=== PATIENT | male | born 1945 | race Caucasian/White ===

== ENCOUNTER 2017-10-01 10:12 | Inpatient (IN) | payer MEDICARE ==
[2017-09-30 11:47] VITALS: BMI 29.1
[2017-10-01] MEDS ORDERED: CEFAZOLIN/Water 2 GM/20 ML SYRINGE ONE ×2 (13:58→14:29)
[2017-10-01] MEDS ORDERED: Lidocaine 1% PF 5 ML VIAL ONE (14:13)
[2017-10-01] MEDS ORDERED: Propofol 200 MG/20 ML VIAL ONE (14:13)
[2017-10-01] MEDS ORDERED: Fentanyl 100 MCG/2 ML VIAL ONE ×2 (14:58→15:19)
[2017-10-01] MEDS ORDERED: Ondansetron HCl/PF 4 MG/2 ML Vial IVP PRN ×2 (16:13→16:36)
[2017-10-01] MEDS ORDERED: Cepastat Lozenges 1 LOZ PO PRN (16:13)
[2017-10-01] MEDS ORDERED: Fentanyl 100 MCG/2 ML VIAL SLOW IVP PRN (16:13)
[2017-10-01] MEDS ORDERED: traMADol HCl 50 MG TAB PO PRN ×2 (16:13)
[2017-10-01] MEDS ORDERED: Ondansetron ODT 4 MG TAB PO PRN (16:13)
[2017-10-01] MEDS ORDERED: Milk Of Magnesia 30 ML UDCUP PO PRN (16:13)
[2017-10-01] MEDS ORDERED: Fleet Enema 133 ML BOT PR PRN (16:13)
[2017-10-01] MEDS ORDERED: Bisacodyl 10 MG SUPP PR PRN (16:13)
[2017-10-01] MEDS ORDERED: Acetaminophen 325 MG TAB PO PRN (16:13)
[2017-10-01] MEDS ORDERED: Sodium Chloride 0.9% 1,000 ML IV SCH (16:15)
[2017-10-01] MEDS ORDERED: HYDROcodone/Acetaminophen 10/325 mg Tablet PO PRN (16:21)
[2017-10-01] MEDS ORDERED: Zolpidem Tartrate 5 MG TAB PO PRN (16:21)
[2017-10-01] MEDS ORDERED: Bisacodyl 5 MG TAB PO PRN (16:21)
[2017-10-01] MEDS ORDERED: Fentanyl 250 MCG/5 ML VIAL ONE (16:26)
[2017-10-01] MEDS ORDERED: Ondansetron HCl/PF 4 MG/2 ML Vial ONE (16:28)
[2017-10-01] MEDS ORDERED: Promethazine HCl 25 MG/ML VIAL ONE (16:30)
[2017-10-01] MEDS ORDERED: Promethazine HCl 25 MG/ML VIAL IM/IV PRN (16:36)
[2017-10-01] MEDS ORDERED: Non-Formulary Medication 1 EACH PO PRN (16:36)
[2017-10-01] MEDS ORDERED: HYDROmorphone 2 MG/ML VIAL SLOW IVP PRN (16:36)
[2017-10-01] MEDS ORDERED: chlordiazePOXIDE/Clidinium Bromide Capsule PO SCH (17:00)
[2017-10-01] MEDS ORDERED: Ketorolac Tromethamine 30 MG/ML VIAL IVP SCH (18:00)
[2017-10-01] MEDS ORDERED: Gabapentin 300 MG CAP PO SCH (21:00)
[2017-10-01] MEDS ORDERED: Aspirin 81 mg Enteric Coated Tablet PO SCH (21:00)
[2017-10-01] MEDS ORDERED: Ferrous Gluconate 324 MG TAB PO SCH (21:00)
[2017-10-01] MEDS ORDERED: DULoxetine 30 MG CAP PO SCH (21:00)
[2017-10-01] MEDS ORDERED: Senokot S 8.6-50 MG TAB PO SCH (21:00)
--- NOTE | 2017-10-01 21:53 | RAD ---
RIGHT FEMUR: 10/01/17 Five fluoroscopic views from the OR presented. INDICATION: Right femur nail placement. Intraoperative imaging during internal fixation procedure. FINDINGS/IMPRESSION: Intramedullary al transfixes femur fracture. POS: [facility]
[2017-10-01] MEDS: Ketorolac Tromethamine 30 MG/ML VIAL IVP SCH (21:58)
[2017-10-01] MEDS ORDERED: CEFAZOLIN 1 GM in Sodium Chloride 0.9% 100 ML IVPB SCH (22:00)
[2017-10-01] MEDS ORDERED: CEFAZOLIN 1 GM, Syringe 2.5 ML in Sterile Water 7.5 ML SLOW IVP SCH (22:00)
[2017-10-02] MEDS ORDERED: Acetaminophen 325 MG TAB PO PRN (00:51)
[2017-10-02] MEDS ORDERED: Bisacodyl 10 MG SUPP PR PRN (00:52)
[2017-10-02] MEDS ORDERED: Fentanyl 100 MCG/2 ML VIAL SLOW IVP PRN (00:53)
[2017-10-02] MEDS ORDERED: Ondansetron ODT 4 MG TAB PO PRN (00:56)
[2017-10-02] MEDS ORDERED: Milk Of Magnesia 30 ML UDCUP PO PRN (00:56)
[2017-10-02] MEDS ORDERED: Ondansetron HCl/PF 4 MG/2 ML Vial IVP PRN (00:56)
[2017-10-02] MEDS ORDERED: Fleet Enema 133 ML BOT PR PRN (00:57)
[2017-10-02] MEDS ORDERED: Zolpidem Tartrate 5 MG TAB PO PRN (00:57)
[2017-10-02] MEDS ORDERED: traMADol HCl 50 MG TAB PO PRN (00:57)
[2017-10-02] MEDS: HYDROcodone/Acetaminophen 10/325 mg Tablet PO PRN ×4 (01:09→20:14)
[2017-10-02] MEDS: Ketorolac Tromethamine 30 MG/ML VIAL IVP SCH ×5 (03:27→23:15)
[2017-10-02] MEDS: Sodium Chloride 0.9% 1,000 ML IV SCH ×2 (03:28→17:56)
[2017-10-02 05:29] LABS: Hematocrit 30.4 % (42.0-52.0); Mean Platelet Volume 7.7 fL (7.4-10.4); Red Blood Cell (RBC) Count 3.23 mill/uL (4.70-6.10); White Blood Cell (WBC) Count 7.5 thou/uL (4.8-10.8)
[2017-10-02] MEDS ORDERED: CEFAZOLIN 1 GM, Syringe 2.5 ML in Sterile Water 7.5 ML SLOW IVP SCH (06:00)
[2017-10-02] MEDS: chlordiazePOXIDE/Clidinium Bromide Capsule PO SCH ×3 (07:40→18:20)
[2017-10-02] MEDS: Gabapentin 300 MG CAP PO SCH ×2 (08:26→20:10)
[2017-10-02] MEDS: Senokot S 8.6-50 MG TAB PO SCH ×2 (08:26→20:08)
[2017-10-02] MEDS: Aspirin 81 mg Enteric Coated Tablet PO SCH ×2 (08:27→20:04)
[2017-10-02] MEDS: Multivitamin W/ Minerals 1 TAB PO SCH (08:27)
[2017-10-02] MEDS: Ferrous Gluconate 324 MG TAB PO SCH ×2 (08:27→20:10)
[2017-10-02] MEDS: Hydrochlorothiazide 25 MG TAB PO SCH (08:27)
[2017-10-02] MEDS ORDERED: Hydrochlorothiazide 25 MG TAB PO SCH (09:00)
[2017-10-02] MEDS ORDERED: (Linaclotide [Linzess] 1 TAB) PO SCH (09:00)
[2017-10-02] MEDS ORDERED: Multivitamin W/ Minerals 1 TAB PO SCH (09:00)
[2017-10-02] MEDS: traMADol HCl 50 MG TAB PO PRN (15:23)
[2017-10-02] MEDS: DULoxetine 30 MG CAP PO SCH (20:04)
[2017-10-02] MEDS: Cepastat Lozenges 1 LOZ PO PRN (23:44)
[2017-10-03] MEDS: Ketorolac Tromethamine 30 MG/ML VIAL IVP SCH ×4 (02:40→20:14)
[2017-10-03] MEDS: Cepastat Lozenges 1 LOZ PO PRN ×2 (02:42→06:34)
[2017-10-03 05:31] LABS: Hematocrit 27.9 % (42.0-52.0); Mean Platelet Volume 8.2 fL (7.4-10.4); Red Blood Cell (RBC) Count 2.96 mill/uL (4.70-6.10); White Blood Cell (WBC) Count 7.8 thou/uL (4.8-10.8)
[2017-10-03] MEDS: chlordiazePOXIDE/Clidinium Bromide Capsule PO SCH ×3 (06:33→17:01)
[2017-10-03] MEDS: Sodium Chloride 0.9% 1,000 ML IV SCH ×2 (07:23→23:44)
[2017-10-03] MEDS: Ferrous Gluconate 324 MG TAB PO SCH ×2 (08:35→20:13)
[2017-10-03] MEDS: Gabapentin 300 MG CAP PO SCH ×2 (08:35→20:14)
[2017-10-03] MEDS: Aspirin 81 mg Enteric Coated Tablet PO SCH ×2 (08:35→20:13)
[2017-10-03] MEDS: Hydrochlorothiazide 25 MG TAB PO SCH (08:35)
[2017-10-03] MEDS: Multivitamin W/ Minerals 1 TAB PO SCH (08:36)
[2017-10-03] MEDS: Senokot S 8.6-50 MG TAB PO SCH ×2 (08:37→20:13)
--- NOTE | 2017-10-03 13:07 | OP ---
DATE OF SURGERY: 10/01/2017 PREOPERATIVE DIAGNOSIS: Right femoral shaft nonunion. POSTOPERATIVE DIAGNOSIS: Right femoral shaft nonunion. SURGICAL PROCEDURE: Exchange reamed nailing of right femoral shaft. ANESTHESIA: General. SURGEON: David Leon M.D. STARCH CRAB: Minesh Lozoya PA-C. BLOOD LOSS: 300 mL IMPLANTS: Synthes EX nail 15 x 420 with 6-mm cross-lock screws. COMPLICATIONS: None. DRAINS: None. SPECIMEN: Explanted femoral nail discarded. OUTCOME: Satisfactory. INDICATIONS: The patient is a 71-year-old gentleman, status post right femoral shaft fracture treate d with an intramedullary nail. The patient is now 5 months postop, but still is not showing extensiv e healing and does have a bent nail, presume broken proximal cross-lock screw. Given these findings, I have discussed with patient that it looks like he does have a nonunion, and as such, we are going to proceed with an exchange reamed nailing of the right femur. Informed consent has been obtained. I believe all questions answered. PROCEDURE IN DETAIL: The patient was brought to the operating room and a timeout performed. General anesthesia was then induced, and the patient was placed on the fracture table with the right leg hel d in gentle longitudinal traction. A sterile prep and drape was then performed of the right lateral thigh. Three small stab wounds were made following the scars from the prior nail placement. With so me difficulty, the distal 2 cross-lock screws were eventually removed. The incisions did have to be lengthened to allow for removal of the screws that did not have good purchase in the bone and require d removal with pliers. The most proximal cross-lock screw was broken and the lateral portion of the screw was able to be removed with a screwdriver leaving behind the more medial component of the screw . This was then followed by a fourth incision proximal with insertion of the removal guide into the top of the femoral nail. The femoral nail was then removed. Through the opening of the proximal fem ur the broken medial half of the proximal cross-lock screw was able to be removed with a pituitary ro ngeur. Next, reaming of the canal started at size 13 and continued up to 16.5-mm. Once performed, a 15 x 420-mm nail was passed over the ball-tip guidewire across the fracture in the distal femoral me taphysis. Using the prior skin incision 2 distal cross-lock screws were applied with freehand techni que and then a single static proximal cross-lock screw was applied through the appropriate jig. At t he completion of this, AP and lateral C-arm images showed acceptable alignment of the femur with a ti ghter fit around the femoral nail now that had been sized up. The wounds were then irrigated with bu lb syringe and closed in layers with 0 Vicryl for fascia, 2-0 Vicryl subcutaneously, and luke for the skin. A Xeroform gauze and tape dressing was applied to each of the wound and then patient was t ransferred to recovery room in stable condition. There were no complications. He tolerated the proc edure well.
[2017-10-03] MEDS: HYDROcodone/Acetaminophen 10/325 mg Tablet PO PRN (20:12)
[2017-10-03] MEDS: DULoxetine 30 MG CAP PO SCH (20:13)
[2017-10-04] MEDS: Bisacodyl 5 MG TAB PO PRN ×2 (04:06→13:19)
[2017-10-04] MEDS: chlordiazePOXIDE/Clidinium Bromide Capsule PO SCH ×3 (06:32→17:44)
[2017-10-04] MEDS: HYDROcodone/Acetaminophen 10/325 mg Tablet PO PRN ×3 (06:33→22:06)
[2017-10-04] MEDS: Multivitamin W/ Minerals 1 TAB PO SCH (09:18)
[2017-10-04] MEDS: Senokot S 8.6-50 MG TAB PO SCH ×2 (09:18→20:24)
[2017-10-04] MEDS: Aspirin 81 mg Enteric Coated Tablet PO SCH ×2 (09:18→20:24)
[2017-10-04] MEDS: Ferrous Gluconate 324 MG TAB PO SCH ×2 (09:19→20:24)
[2017-10-04] MEDS: Gabapentin 300 MG CAP PO SCH ×2 (09:19→20:24)
[2017-10-04] MEDS: Hydrochlorothiazide 25 MG TAB PO SCH (09:19)
[2017-10-04] MEDS: Sodium Chloride 0.9% 1,000 ML IV SCH (14:26)
[2017-10-04] MEDS: DULoxetine 30 MG CAP PO SCH (20:24)
[2017-10-05] MEDS: Sodium Chloride 0.9% 1,000 ML IV SCH ×2 (06:02→21:03)
[2017-10-05] MEDS: Ferrous Gluconate 324 MG TAB PO SCH ×2 (08:32→20:29)
[2017-10-05] MEDS: Hydrochlorothiazide 25 MG TAB PO SCH (08:32)
[2017-10-05] MEDS: Aspirin 81 mg Enteric Coated Tablet PO SCH ×2 (08:33→20:29)
[2017-10-05] MEDS: Senokot S 8.6-50 MG TAB PO SCH ×2 (08:33→20:29)
[2017-10-05] MEDS: chlordiazePOXIDE/Clidinium Bromide Capsule PO SCH ×3 (08:33→16:49)
[2017-10-05] MEDS: Gabapentin 300 MG CAP PO SCH ×2 (08:33→20:29)
[2017-10-05] MEDS: Multivitamin W/ Minerals 1 TAB PO SCH (08:34)
[2017-10-05] MEDS ORDERED: Bisacodyl 10 MG SUPP PR PRN (08:39)
[2017-10-05] MEDS: Milk Of Magnesia 30 ML UDCUP PO PRN ×2 (10:10→16:49)
[2017-10-05] MEDS: HYDROcodone/Acetaminophen 10/325 mg Tablet PO PRN (16:49)
[2017-10-05] MEDS: DULoxetine 30 MG CAP PO SCH (20:29)
[2017-10-06] MEDS: HYDROcodone/Acetaminophen 10/325 mg Tablet PO PRN ×4 (00:35→17:26)
[2017-10-06] MEDS: chlordiazePOXIDE/Clidinium Bromide Capsule PO SCH ×3 (06:47→17:13)
[2017-10-06] MEDS: Milk Of Magnesia 30 ML UDCUP PO PRN ×2 (09:49→17:25)
[2017-10-06] MEDS: Gabapentin 300 MG CAP PO SCH ×2 (09:49→20:29)
[2017-10-06] MEDS: Senokot S 8.6-50 MG TAB PO SCH ×2 (09:49→20:30)
[2017-10-06] MEDS: Aspirin 81 mg Enteric Coated Tablet PO SCH ×2 (09:49→20:30)
[2017-10-06] MEDS: Hydrochlorothiazide 25 MG TAB PO SCH (09:49)
[2017-10-06] MEDS: Ferrous Gluconate 324 MG TAB PO SCH ×2 (09:50→20:30)
[2017-10-06] MEDS: Multivitamin W/ Minerals 1 TAB PO SCH (09:50)
[2017-10-06] MEDS: Sodium Chloride 0.9% 1,000 ML IV SCH (12:00)
[2017-10-06] MEDS: DULoxetine 30 MG CAP PO SCH (20:29)
[2017-10-06] MEDS: traMADol HCl 50 MG TAB PO PRN (20:32)
[2017-10-07] MEDS: HYDROcodone/Acetaminophen 10/325 mg Tablet PO PRN ×3 (01:08→12:14)
[2017-10-07] MEDS: Sodium Chloride 0.9% 1,000 ML IV SCH (05:02)
[2017-10-07 08:16] VITALS: TEMP 98.2
[2017-10-07] MEDS: chlordiazePOXIDE/Clidinium Bromide Capsule PO SCH ×2 (08:16→12:03)
[2017-10-07] MEDS: Senokot S 8.6-50 MG TAB PO SCH (08:57)
[2017-10-07] MEDS: Hydrochlorothiazide 25 MG TAB PO SCH (08:58)
[2017-10-07] MEDS: Multivitamin W/ Minerals 1 TAB PO SCH (08:58)
[2017-10-07] MEDS: Gabapentin 300 MG CAP PO SCH (08:58)
[2017-10-07] MEDS: Aspirin 81 mg Enteric Coated Tablet PO SCH (08:58)
[2017-10-07] MEDS: Milk Of Magnesia 30 ML UDCUP PO PRN (08:58)
[2017-10-07] MEDS: Ferrous Gluconate 324 MG TAB PO SCH (08:58)
[2017-10-07 13:22] VITALS: BP 109/62
--- NOTE | 2017-10-08 13:11 | DIS ---
DATE OF ADMISSION: 10/01/2017 DATE OF DISCHARGE: 10/07/2017 ADMISSION DIAGNOSIS: Right femoral shaft nonunion. DISCHARGE DIAGNOSIS: Right femoral shaft nonunion. PROCEDURE: The patient underwent an exchange reamed nailing of the right femoral shaft. HOSPITAL COURSE: Hospital stay grossly unremarkable. The length of his stay was due to insurance is sues, not being able to get accepted to a skilled facility. Postoperatively, he did well. He walked every day with therapy and by the time he left, he was doing remarkably well and was almost independ ent. DISCHARGE CONDITION: Good/stable. DISPOSITION: Skilled facility. FOLLOWUP: Follow up would be in 7-14 days or sooner if there are problems or concerns. DISCHARGE MEDICATIONS: Given with usage instructions.
== END 2017-10-07 15:06 | DRG 482 ==
LOC: 2NO 10:45 → SJJU 17:58 → SURG A 20:06 → SJJU 20:07 → SURG B 20:19 → SJJU 20:20 → T4-B 20:23 → SJJU 20:25 → SURG A 10-03 17:22
PROVIDERS: ADMIT Orthopaedic Surgery; ATTEND Orthopaedic Surgery
PROC: 0QS806Z Reposition Right Femoral Shaft with Intramedullary Internal Fixation Device, Open Approach (ICD-10-PCS; principal; 2017-10-01)
PROC: 0QP804Z Removal of Internal Fixation Device from Right Femoral Shaft, Open Approach (ICD-10-PCS; 2017-10-01)
DX: S72.331 Displaced oblique fracture of shaft of right femur (principal); Z88.8 Allergy status to other drugs, medicaments and biological substances; X58.XXXD Exposure to other specified factors, subsequent encounter
CPT/HCPCS: 36415; 76001; 85027; A4216; C1713; C1769; G8978-GP-CJ; G8979-GP-CJ; G8987-GO-CK; G8988-GO-CI; J0690; J1885; J2001; J2405; J2550; J2704; J3010

== ENCOUNTER 2018-03-27 17:03 | Emergency (ER) | payer MEDICARE ==
--- NOTE | 2018-03-27 17:58 | RAD ---
CHEST ONE VIEW: 03/27/18 HISTORY: Cough. COMPARISON: Chest one view 09/15/17. FINDINGS: Lungs are clear. No pneumothorax or effusion. The cardiac silhouette and mediastinal contours are wit hin normal limits. IMPRESSION: No acute intrathoracic abnormality. POS: [facility]
[2018-03-27 18:39] LABS: #Eosinphils 0.3 thou/uL (0.0-0.7); #Lymphocytes 2.8 thou/uL (1.20-3.40); #Monocytes 1.4 thou/uL (0.11-0.59); #Neutrophils 7.2 thou/uL (1.40-6.50); %Basophils 0.4 % (0.0-1.0); %Eosinophils 2.2 % (0.0-10.0); %Lymphocytes 23.9 % (21.0-51.0); %Monocytes 11.6 % (0.0-10.0); %Neutrophils 61.9 % (42.0-75.0); Hemoglobin 13.6 g/dL (14.0-18.0); Mean Corpuscular HGB CONC 32.7 g/dL (32.0-36.0); Mean Corpuscular Hemoglobin 30.4 pg (27.0-31.0); Mean Corpuscular Volume 92.8 fl (80.0-94.0); Mean Platelet Volume 7.9 fL (7.4-10.4); Platelet Count 225 thou/uL (130-400); RBC Distribution Width 13.6 % (11.5-14.5); Red Blood Cell (RBC) Count 4.48 mill/uL (4.70-6.10); White Blood Cell (WBC) Count 11.7 thou/uL (4.8-10.8)
[2018-03-27 19:08] LABS: ALT (SGPT) 18 U/L (8-55); AST (SGOT) 21 U/L (5-34); Albumin 4.5 g/dL (3.4-4.8); Alkaline Phosphatase 200 U/L (40-150); Anion Gap 13 mmol/L (10-20); BUN (Urea Nitrogen) 24 mg/dL (8.4-25.7); Bilirubin, Total 0.4 mg/dL (0.2-1.2); Calc. Creatinine Clearance 0 mL/min (70-130); Calcium 9.9 mg/dL (7.8-10.44); Carbon Dioxide 31 mmol/L (23-31); Chloride 98 mmol/L (98-107); Estimated GFR-MDRD 69; Globulin 3.4 g/dL (2.4-3.5); Glucose 100 mg/dL (83-110); Potassium 3.6 mmol/L (3.5-5.1); Protein, Total 7.9 g/dL (5.8-8.1); Sodium 138 mmol/L (136-145)
== END 2018-03-27 20:55 | disposition home or self-care (01) ==
LOC: ERS 17:03
DX: J40 Bronchitis, not specified as acute or chronic (principal); I10 Essential (primary) hypertension; K21.9 Gastro-esophageal reflux disease without esophagitis
CPT/HCPCS: 36415; 71045; 80053; 85025

== ENCOUNTER 2022-05-17 14:16 | Outpatient (CLI) | payer MEDICARE | END 2022-05-17 14:17 | disposition home or self-care (01) | LOC: LABBT 14:16 | PROVIDERS: ATTEND Orthopaedic Surgery | DX: S52.502A Unspecified fracture of the lower end of left radius, initial encounter for closed fracture (principal); Z20.822 Contact with and (suspected) exposure to COVID-19 | CPT/HCPCS: 87811 ==

== ENCOUNTER 2022-05-21 10:11 | Day surgery (SDC) | payer MEDICARE ==
[2022-05-18 11:10] VITALS: BMI 26.9
[2022-05-21] MEDS ORDERED: Midazolam HCl 2 mg/2 ml Vial ONE (12:17)
[2022-05-21] MEDS ORDERED: Fentanyl 100 MCG/2 ML VIAL ONE (12:17)
[2022-05-21] MEDS ORDERED: CEFAZOLIN 2 GM VIAL ONE (12:48)
[2022-05-21] MEDS ORDERED: Sodium Chloride 0.9% 100 ML ONE (12:48)
[2022-05-21] MEDS ORDERED: fentaNYL Citrate/PF 100 MCG/2 ML SYRINGE ONE (12:59)
[2022-05-21] MEDS ORDERED: Ondansetron PF 4 MG/2 ML Vial ONE (13:02)
[2022-05-21] MEDS ORDERED: Lidocaine 1% PF 5 ML VIAL ONE (13:02)
[2022-05-21] MEDS ORDERED: Dexamethasone 20 MG/5 ML VIAL ONE (13:02)
[2022-05-21] MEDS ORDERED: Bupivacaine HCl 0.5%/Epinephrine 1:200,000/PF 30 ml Vial ONE (13:02)
[2022-05-21] MEDS ORDERED: PROPOFOL 200 MG/20 ML VIAL ONE (13:02)
== END 2022-05-21 15:50 | disposition home or self-care (01) ==
LOC: SDC 10:11
PROVIDERS: ATTEND Orthopaedic Surgery
PROC: 0PSJ04Z Reposition Left Radius with Internal Fixation Device, Open Approach (ICD-10-PCS; principal; 2022-05-21)
PROC: 3E0T3BZ Introduction of Anesthetic Agent into Peripheral Nerves and Plexi, Percutaneous Approach (ICD-10-PCS; 2022-05-21)
DX: S52.572A Other intraarticular fracture of lower end of left radius, initial encounter for closed fracture (principal); Z79.82 Long term (current) use of aspirin; Z79.899 Other long term (current) drug therapy; Z88.1 Allergy status to other antibiotic agents; W19.XXXA Unspecified fall, initial encounter
CPT/HCPCS: 76000; C1713; C1776; J0690; J1100; J2250; J2405; J2704; J3010; J3490

== ENCOUNTER 2022-07-09 09:52 | Outpatient (CLI) | payer MEDICARE ==
[2022-07-09] MEDS ORDERED: Magnevist 469MG/ML 20 ML VIAL ONE (10:15)
== END 2022-07-09 09:53 | disposition home or self-care (01) ==
LOC: MRI 09:52
PROVIDERS: ATTEND Family Medicine
DX: M54.12 Radiculopathy, cervical region (principal); M48.02 Spinal stenosis, cervical region; M48.03 Spinal stenosis, cervicothoracic region
CPT/HCPCS: 72156; 82565; A9579

== ENCOUNTER 2022-09-04 11:28 | Inpatient (IN) | payer MEDICARE ==
[2022-09-04 12:38] LABS: #Eosinphils 0.3 thou/uL (0.0-0.7); #Lymphocytes 1.8 thou/uL (1.20-3.40); #Neutrophils 6.4 thou/uL (1.40-6.50); %Basophils 0.3 % (0.0-1.0); %Eosinophils 3.4 % (0.0-10.0); %Lymphocytes 18.9 % (21.0-51.0); %Monocytes 9.9 % (0.0-10.0); %Neutrophils 67.5 % (42.0-75.0); Hemoglobin 12.9 g/dL (14.0-18.0); Mean Corpuscular HGB CONC 32.3 g/dL (32.0-36.0); Mean Corpuscular Hemoglobin 31.6 pg (27.0-31.0); Mean Corpuscular Volume 97.7 fl (78.0-98.0); Platelet Count 212 thou/uL (130-400); RBC Distribution Width 11.7 % (11.5-14.5); White Blood Cell (WBC) Count 9.5 thou/uL (4.8-10.8)
[2022-09-04 12:59] LABS: ALT (SGPT) 16 U/L (8-55); AST (SGOT) 20 U/L (5-34); Albumin 4.1 g/dL (3.4-4.8); Alkaline Phosphatase 153 U/L (40-110); Anion Gap 10 mmol/L (10-20); BUN (Urea Nitrogen) 19 mg/dL (8.4-25.7); Bilirubin, Total 0.3 mg/dL (0.2-1.2); Calc. Creatinine Clearance 0 mL/min (70-130); Calcium 9.5 mg/dL (7.8-10.44); Carbon Dioxide 31 mmol/L (23-31); Chloride 104 mmol/L (98-107); Estimated GFR 69; Globulin 2.7 g/dL (2.4-3.5); Glucose 112 mg/dL (83-110); Potassium 3.8 mmol/L (3.5-5.1); Protein, Total 6.8 g/dL (5.8-8.1); Sodium 141 mmol/L (136-145)
[2022-09-04] MEDS ORDERED: Morphine 4 MG/ML VIAL ONE ×2 (14:22→20:06)
[2022-09-04] MEDS ORDERED: Ondansetron PF 4 MG/2 ML Vial ONE (14:22)
[2022-09-04 16:27] LABS: Bacteria/HPF None Seen HPF (None Seen); Bilirubin Negative (Negative); Blood, Urine 2+ (Negative); Clarity Clear (Clear); Glucose, Urine (Dipstick) Normal (Negative); Ketone, Urine Negative (Negative); Leukocyte 25 Leu/uL (Negative); Nitrite Negative (Negative); Protein, Urine (Dipstick) 20 mg/dL (Neg-Trace); RBC/HPF Greater than 50 HPF (0-3); Specific Gravity, Urine 1.024 (1.002-1.036); Squamous Epithelial None Seen HPF (0-3); Urobilinogen Normal mg/dL (Less than 2)
[2022-09-04] MEDS ORDERED: Ondansetron ODT 4 MG TAB PO PRN (20:21)
[2022-09-04] MEDS ORDERED: Fioricet 325/50/40 mg Tablet PO PRN (20:30)
[2022-09-04] MEDS ORDERED: SUMAtriptan Succinate 50 MG TAB PO PRN (20:40)
[2022-09-04 20:47] LABS: Magnesium 2.2 mg/dL (1.6-2.6); Phosphorus 2.5 mg/dL (2.3-4.7)
[2022-09-04] MEDS: cefTRIAXone\\ROCEPHIN 2 GM in Sodium Chloride 0.9% 100 ML IVPB SCH (21:53)
[2022-09-04] MEDS: Rosuvastatin 20 MG TAB PO SCH (21:59)
[2022-09-04] MEDS: Tamsulosin HCl 0.4 MG CAP PO SCH (21:59)
[2022-09-04 22:23] VITALS: BMI 28.5
[2022-09-04 23:26] LABS: SARS-CoV-2 NAA Rapid Test Not Detected (NotDetected)
[2022-09-05] MEDS: Morphine 4 MG/ML VIAL SLOW IVP PRN ×3 (01:42→11:46)
[2022-09-05] MEDS: Acetaminophen 325 MG TAB PO PRN (04:53)
[2022-09-05] MEDS: Ondansetron PF 4 MG/2 ML Vial IVP PRN ×2 (05:46→11:46)
[2022-09-05 06:01] LABS: #Eosinphils 0.2 thou/uL (0.0-0.7); #Lymphocytes 1.2 thou/uL (1.20-3.40); #Monocytes 1.3 thou/uL (0.11-0.59); #Neutrophils 7.4 thou/uL (1.40-6.50); %Basophils 0.3 % (0.0-1.0); %Lymphocytes 12.1 % (21.0-51.0); %Monocytes 12.8 % (0.0-10.0); %Neutrophils 72.8 % (42.0-75.0); Hemoglobin 12.1 g/dL (14.0-18.0); Mean Corpuscular HGB CONC 32.7 g/dL (32.0-36.0); Mean Corpuscular Hemoglobin 31.9 pg (27.0-31.0); Mean Corpuscular Volume 97.8 fl (78.0-98.0); Mean Platelet Volume 8.9 fL (7.4-10.4); Platelet Count 179 thou/uL (130-400); RBC Distribution Width 11.7 % (11.5-14.5); White Blood Cell (WBC) Count 10.1 thou/uL (4.8-10.8)
[2022-09-05 06:57] LABS: Anion Gap 10 mmol/L (10-20); BUN (Urea Nitrogen) 21 mg/dL (8.4-25.7); Calc. Creatinine Clearance 57 mL/min (70-130); Carbon Dioxide 30 mmol/L (23-31); Chloride 103 mmol/L (98-107); Estimated GFR 48; Glucose 123 mg/dL (83-110); Potassium 3.8 mmol/L (3.5-5.1); Sodium 139 mmol/L (136-145)
[2022-09-05] MEDS ORDERED: Hydrochlorothiazide 25 MG TAB PO SCH (09:00)
[2022-09-05] MEDS ORDERED: FLU VACC QS2022-23(65YR UP)/PF 240 MCG/0.7 ML SYRINGE IM ONE (09:00)
[2022-09-05] MEDS: Sodium Chloride 0.9% 1,000 ML IV SCH ×3 (09:50→20:25)
[2022-09-05] MEDS: DULoxetine 60 MG CAP PO SCH (09:51)
[2022-09-05] MEDS ORDERED: Iopamidol 15 ML ONE (13:08)
[2022-09-05] MEDS ORDERED: Famotidine/PF 20 mg/2ml Vial ONE (13:14)
[2022-09-05] MEDS ORDERED: fentaNYL Citrate/PF 100 MCG/2 ML SYRINGE ONE (13:15)
[2022-09-05] MEDS ORDERED: Levofloxacin 500 mg/D5W 100 ml Premix Bag ONE (13:16)
[2022-09-05] MEDS ORDERED: Dexamethasone 20 MG/5 ML VIAL ONE (13:25)
[2022-09-05] MEDS ORDERED: Ondansetron PF 4 MG/2 ML Vial ONE (13:25)
[2022-09-05] MEDS ORDERED: PROPOFOL 200 MG/20 ML VIAL ONE (13:25)
[2022-09-05] MEDS ORDERED: Promethazine HCl 25 MG/ML VIAL IVPB PRN (13:57)
[2022-09-05] MEDS ORDERED: Meperidine HCl/PF 25 MG/ML VIAL SLOW IVP PRN (13:57)
[2022-09-05] MEDS ORDERED: FENTANYL 50 MCG/ML VIAL 50 MCG/ML VIAL ONE (14:08)
[2022-09-05] MEDS ORDERED: Polyethylene Glycol 3350 17 GM Packet PO PRN (16:40)
[2022-09-05 16:50] LABS: Lactic Acid 0.7 mmol/L (0.5-2.2)
[2022-09-05 17:01] LABS: Anion Gap 12 mmol/L (10-20); BUN (Urea Nitrogen) 21 mg/dL (8.4-25.7); Calc. Creatinine Clearance 61 mL/min (70-130); Calcium 8.7 mg/dL (7.8-10.44); Carbon Dioxide 29 mmol/L (23-31); Chloride 104 mmol/L (98-107); Estimated GFR 52; Glucose 124 mg/dL (83-110); Potassium 4.7 mmol/L (3.5-5.1); Sodium 140 mmol/L (136-145)
[2022-09-05] MEDS: cefTRIAXone\\ROCEPHIN 2 GM in Sodium Chloride 0.9% 100 ML IVPB SCH (20:20)
[2022-09-05] MEDS: Docusate 100 MG CAP PO SCH (20:21)
[2022-09-05] MEDS: Rosuvastatin 20 MG TAB PO SCH (20:21)
[2022-09-05] MEDS: Tamsulosin HCl 0.4 MG CAP PO SCH (20:21)
[2022-09-06 06:06] LABS: #Eosinphils 0.1 thou/uL (0.0-0.7); #Lymphocytes 1.7 thou/uL (1.20-3.40); #Monocytes 0.9 thou/uL (0.11-0.59); #Neutrophils 6.9 thou/uL (1.40-6.50); %Basophils 0.2 % (0.0-1.0); %Eosinophils 0.6 % (0.0-10.0); %Lymphocytes 17.5 % (21.0-51.0); %Neutrophils 72.8 % (42.0-75.0); Mean Corpuscular HGB CONC 32.5 g/dL (32.0-36.0); Mean Corpuscular Hemoglobin 32.2 pg (27.0-31.0); Mean Corpuscular Volume 99.2 fl (78.0-98.0); Mean Platelet Volume 8.8 fL (7.4-10.4); Platelet Count 165 thou/uL (130-400); RBC Distribution Width 11.6 % (11.5-14.5); Red Blood Cell (RBC) Count 3.43 mill/uL (4.70-6.10); White Blood Cell (WBC) Count 9.5 thou/uL (4.8-10.8)
[2022-09-06] MEDS: Sodium Chloride 0.9% 1,000 ML IV SCH ×4 (06:06→23:35)
[2022-09-06 06:31] LABS: Anion Gap 11 mmol/L (10-20); BUN (Urea Nitrogen) 23 mg/dL (8.4-25.7); Calc. Creatinine Clearance 82 mL/min (70-130); Carbon Dioxide 25 mmol/L (23-31); Chloride 108 mmol/L (98-107); Potassium 3.8 mmol/L (3.5-5.1); Sodium 140 mmol/L (136-145)
[2022-09-06 06:32] LABS: ALT (SGPT) 9 U/L (8-55); AST (SGOT) 15 U/L (5-34); Albumin 3.1 g/dL (3.4-4.8); Alkaline Phosphatase 125 U/L (40-110); Bilirubin, Total 0.2 mg/dL (0.2-1.2); Calcium 8.5 mg/dL (7.8-10.44); Estimated GFR 74; Globulin 2.6 g/dL (2.4-3.5); Glucose 104 mg/dL (83-110); Protein, Total 5.7 g/dL (5.8-8.1)
[2022-09-06] MEDS: Saccharomyces boulardii 250 MG CAP PO SCH (10:13)
[2022-09-06] MEDS: DULoxetine 60 MG CAP PO SCH (10:13)
[2022-09-06] MEDS: Docusate 100 MG CAP PO SCH (10:13)
[2022-09-06] MEDS: cefTRIAXone\\ROCEPHIN 2 GM in Sodium Chloride 0.9% 100 ML IVPB SCH (19:45)
[2022-09-06] MEDS: Rosuvastatin 20 MG TAB PO SCH (19:45)
[2022-09-06] MEDS: Tamsulosin HCl 0.4 MG CAP PO SCH (19:45)
[2022-09-06] MEDS: Senokot S 8.6-50 MG TAB PO SCH (19:45)
[2022-09-07 05:59] LABS: #Eosinphils 0.3 thou/uL (0.0-0.7); #Lymphocytes 1.8 thou/uL (1.20-3.40); #Monocytes 0.9 thou/uL (0.11-0.59); #Neutrophils 6.3 thou/uL (1.40-6.50); %Basophils 0.3 % (0.0-1.0); %Eosinophils 3.6 % (0.0-10.0); %Lymphocytes 19.5 % (21.0-51.0); %Monocytes 9.7 % (0.0-10.0); Hemoglobin 11.3 g/dL (14.0-18.0); Mean Corpuscular HGB CONC 31.9 g/dL (32.0-36.0); Mean Corpuscular Hemoglobin 31.3 pg (27.0-31.0); Mean Corpuscular Volume 98.2 fl (78.0-98.0); Mean Platelet Volume 8.8 fL (7.4-10.4); Platelet Count 180 thou/uL (130-400); RBC Distribution Width 11.6 % (11.5-14.5); Red Blood Cell (RBC) Count 3.61 mill/uL (4.70-6.10); White Blood Cell (WBC) Count 9.4 thou/uL (4.8-10.8)
[2022-09-07 06:18] LABS: Anion Gap 11 mmol/L (10-20); BUN (Urea Nitrogen) 15 mg/dL (8.4-25.7); Calc. Creatinine Clearance 100 mL/min (70-130); Calcium 8.6 mg/dL (7.8-10.44); Carbon Dioxide 26 mmol/L (23-31); Chloride 109 mmol/L (98-107); Estimated GFR 90; Glucose 103 mg/dL (83-110); Potassium 3.6 mmol/L (3.5-5.1); Sodium 142 mmol/L (136-145)
[2022-09-07 08:14] VITALS: TEMP 98.5
[2022-09-07] MEDS: Senokot S 8.6-50 MG TAB PO SCH (08:21)
[2022-09-07] MEDS: Saccharomyces boulardii 250 MG CAP PO SCH (08:22)
[2022-09-07] MEDS: DULoxetine 60 MG CAP PO SCH (08:22)
[2022-09-07] MEDS: Acetaminophen 325 MG TAB PO PRN (08:23)
[2022-09-07] MEDS ORDERED: Bisacodyl 10 MG SUPP PR SCH (08:45)
[2022-09-07] MEDS ORDERED: GoLYTELY 4,000 ml Bottle PO SCH (10:30)
[2022-09-07] MEDS ORDERED: Fioricet 325/50/40 mg Tablet PO PRN (13:00)
[2022-09-07 15:55] VITALS: BP 154/83
== END 2022-09-07 16:46 | disposition home or self-care (01) | DRG 854 ==
LOC: ERS 11:28 → SURG A 19:42 → OBSVTOIN 09-05 12:41
PROVIDERS: ADMIT Internal Medicine; ATTEND Internal Medicine
PROC: 0T768DZ Dilation of Right Ureter with Intraluminal Device, Via Natural or Artificial Opening Endoscopic (ICD-10-PCS; principal; 2022-09-05)
PROC: BT1D1ZZ Fluoroscopy of Right Kidney, Ureter and Bladder using Low Osmolar Contrast (ICD-10-PCS; 2022-09-05)
PROC: 3E03329 Introduction of Other Anti-infective into Peripheral Vein, Percutaneous Approach (ICD-10-PCS; 2022-09-05)
DX: A41.9 Sepsis, unspecified organism (principal); N13.6 Pyonephrosis; N17.9 Acute kidney failure, unspecified; N30.00 Acute cystitis without hematuria; Z20.822 Contact with and (suspected) exposure to COVID-19; R65.20 Severe sepsis without septic shock; M79.7 Fibromyalgia; M81.0 Age-related osteoporosis without current pathological fracture; N40.1 Benign prostatic hyperplasia with lower urinary tract symptoms; G43.909 Migraine, unspecified, not intractable, without status migrainosus; R33.8 Other retention of urine; N18.2 Chronic kidney disease, stage 2 (mild); E11.22 Type 2 diabetes mellitus with diabetic chronic kidney disease; K57.30 Diverticulosis of large intestine without perforation or abscess without bleeding; G89.4 Chronic pain syndrome; F41.9 Anxiety disorder, unspecified; Q63.1 Lobulated, fused and horseshoe kidney; Z88.1 Allergy status to other antibiotic agents; Z79.899 Other long term (current) drug therapy; Z79.82 Long term (current) use of aspirin; Z98.890 Other specified postprocedural states
CPT/HCPCS: 36415; 74176; 74420; 80048; 80053; 81003; 81015; 83605; 83735; 84100; 85025; 87040; 87086; 96374; 96375; 96376; C2617; G0378; J0696; J1100; J1956; J2270; J2405; J2704; J3490; J7050; Q9967; S0028; U0002

== ENCOUNTER 2022-09-13 10:16 | Outpatient (CLI) | payer MEDICARE ==
[2022-09-13 12:30] LABS: Hemoglobin 12.4 g/dL (13.5-17.5); Mean Corpuscular HGB CONC 34.1 g/dL (32.0-36.0); Mean Corpuscular Hemoglobin 31.6 pg (27.0-33.0); Mean Corpuscular Volume 92.6 fl (81.2-95.1); Mean Platelet Volume 10.9 fl (7.4-10.4); Platelet Count 277 10x3/uL (150-450); RBC Distribution Width 12.7 % (11.5-14.5); Red Blood Cell (RBC) Count 3.93 10x6/uL (4.32-5.72); White Blood Cell (WBC) Count 7.8 10x3/uL (3.5-10.5)
[2022-09-13 12:54] LABS: Anion Gap 14 mmol/L (10-20); BUN (Urea Nitrogen) 15 mg/dL (8.4-25.7); Calc. Creatinine Clearance 0 mL/min (70-130); Calcium 9.7 mg/dL (7.8-10.44); Carbon Dioxide 29 mmol/L (23-31); Chloride 101 mmol/L (98-107); Estimated GFR 82; Glucose 106 mg/dL (83-110); Potassium 3.7 mmol/L (3.5-5.1); Sodium 140 mmol/L (136-145)
[2022-09-13 13:10] LABS: PTT 27.3 sec (22.0-33.0); Prothrombin Time 11.1 sec (9.5-12.1)
== END 2022-09-13 10:17 | disposition home or self-care (01) ==
LOC: LABBT 10:16
PROVIDERS: ATTEND Urology
DX: Z01.818 Encounter for other preprocedural examination (principal); N20.1 Calculus of ureter
CPT/HCPCS: 80048; 81001; 85027; 85610; 85730; 87086; 93005; 93010

== ENCOUNTER 2022-09-17 08:12 | Day surgery (SDC) | payer MEDICARE ==
[2022-09-14 10:02] VITALS: BMI 28.5
[2022-09-17] MEDS ORDERED: Iopamidol 0 ML ONE (11:32)
[2022-09-17] MEDS ORDERED: Iopamidol 30 ML ONE (14:37)
[2022-09-17] MEDS ORDERED: fentaNYL PF 100 MCG/2 ML SYRINGE ONE (15:01)
[2022-09-17] MEDS ORDERED: cefTRIAXone\\ROCEPHIN 2 GM VIAL ONE (15:08)
[2022-09-17] MEDS ORDERED: Sodium Chloride 0.9% 100 ML ONE (15:08)
[2022-09-17] MEDS ORDERED: Dexamethasone 20 MG/5 ML VIAL ONE (15:14)
[2022-09-17] MEDS ORDERED: Ondansetron PF 4 MG/2 ML Vial ONE (15:14)
[2022-09-17] MEDS ORDERED: Rocuronium Bromide 10 MG/ML (10ML VIAL) ONE (15:14)
[2022-09-17] MEDS ORDERED: NEOSTIGMINE 3 MG/3 ML SYR 3 MG/3 ML SYRINGE ONE (15:14)
[2022-09-17] MEDS ORDERED: PROPOFOL 200 MG/20 ML VIAL ONE (15:14)
[2022-09-17] MEDS ORDERED: Glycopyrrolate 0.2 MG/ML 5 ML SYRINGE ONE (15:14)
[2022-09-17] MEDS ORDERED: FENTANYL 50 MCG/ML 1 ML VIAL SLOW IVP PRN (16:35)
[2022-09-17] MEDS ORDERED: Ondansetron HCl/PF 4 MG/2 ML Vial IVP PRN (16:37)
[2022-09-17] MEDS ORDERED: Labetalol HCl 100 MG/20 ML VIAL SLOW IVP PRN (16:38)
[2022-09-17] MEDS ORDERED: Phenazopyridine HCl 100 MG TAB ONE ×2 (16:43→16:49)
[2022-09-17] MEDS ORDERED: Tamsulosin HCl 0.4 MG CAP ONE (16:44)
[2022-09-17] MEDS ORDERED: Promethazine HCl 25 MG/ML VIAL IM/IV PRN (16:45)
[2022-09-17] MEDS ORDERED: HYDROmorphone 2 MG/ML VIAL SLOW IVP PRN (16:45)
[2022-09-17] MEDS ORDERED: FENTANYL 50 MCG/ML 1 ML VIAL ONE (17:55)
== END 2022-09-17 20:06 | disposition home or self-care (01) ==
LOC: SDC 08:12
PROVIDERS: ATTEND Urology
PROC: 0TC68ZZ Extirpation of Matter from Right Ureter, Via Natural or Artificial Opening Endoscopic (ICD-10-PCS; principal; 2022-09-17)
PROC: 0TP98DZ Removal of Intraluminal Device from Ureter, Via Natural or Artificial Opening Endoscopic (ICD-10-PCS; 2022-09-17)
PROC: 0T768DZ Dilation of Right Ureter with Intraluminal Device, Via Natural or Artificial Opening Endoscopic (ICD-10-PCS; 2022-09-17)
DX: N20.1 Calculus of ureter (principal); Q63.1 Lobulated, fused and horseshoe kidney; G89.4 Chronic pain syndrome; I10 Essential (primary) hypertension; Z79.899 Other long term (current) drug therapy; Z88.1 Allergy status to other antibiotic agents
CPT/HCPCS: 52356; 74018; 74420; 82365; C1769; C2617; J3010; 88300; J0696; J1100; J2405; J2704; J3490; Q9967

== ENCOUNTER 2024-01-10 18:06 | Inpatient (IN) | payer MEDICARE ==
[2024-01-10] MEDS ORDERED: Ondansetron PF 4 MG/2 ML Vial ONE (18:36)
[2024-01-10] MEDS ORDERED: Morphine 4 MG/ML VIAL ONE (18:36)
[2024-01-10 18:55] LABS: Bacteria/HPF None Seen HPF (None Seen); Bilirubin Negative (Negative); Blood, Urine Negative (Negative); CAUTI Indications for Culture Pelvic or flank pain; Clarity Clear (Clear); Glucose, Urine (Dipstick) Normal (Negative); Ketone, Urine Trace mg/dL (Negative); Leukocyte Negative Leu/uL (Negative); Nitrite Negative (Negative); Protein, Urine (Dipstick) Negative (Neg-Trace); RBC/HPF 0-3 HPF (0-3); Specific Gravity, Urine 1.019 (1.002-1.036); Squamous Epithelial 0-3 HPF (0-3); Urobilinogen Normal mg/dL (Less than 2); WBC/HPF 0-3 HPF (0-3)
[2024-01-10 18:57] LABS: Urine Culture Reflex No No
[2024-01-10 19:25] LABS: #Monocytes 1.2 thou/uL (0.11-0.59); #Neutrophils 10.6 thou/uL (1.40-6.50); %Basophils 0.2 % (0.0-1.0); %Eosinophils 0.2 % (0.0-10.0); %Lymphocytes 8.7 % (21.0-51.0); %Neutrophils 81.7 % (42.0-75.0); Hematocrit 38.6 % (42.0-52.0); Hemoglobin 13.1 g/dL (14.0-18.0); Mean Corpuscular HGB CONC 33.9 g/dL (32.0-36.0); Mean Corpuscular Volume 94.4 fl (78.0-98.0); Mean Platelet Volume 11.1 fL (7.4-10.4); Platelet Count 190 10x3/uL (130-400); RBC Distribution Width 12.6 % (11.5-14.5); Red Blood Cell (RBC) Count 4.09 mill/uL (4.70-6.10)
[2024-01-10 19:41] LABS: ALT (SGPT) 15 U/L (8-55); AST (SGOT) 24 U/L (5-34); Albumin 4.2 g/dL (3.4-4.8); Alkaline Phosphatase 125 U/L (40-110); Anion Gap 14 mmol/L (10-20); BUN (Urea Nitrogen) 16 mg/dL (8.4-25.7); Bilirubin, Total 0.7 mg/dL (0.2-1.2); Calc. Creatinine Clearance 0 mL/min (70-130); Calcium 9.5 mg/dL (7.8-10.44); Carbon Dioxide 26 mmol/L (23-31); Chloride 101 mmol/L (98-107); Estimated GFR 90; Globulin 3.1 g/dL (2.4-3.5); Glucose 124 mg/dL (83-110); Potassium 4.1 mmol/L (3.5-5.1); Protein, Total 7.3 g/dL (5.8-8.1); Sodium 137 mmol/L (136-145)
[2024-01-10] MEDS ORDERED: Morphine 2 MG/ML VIAL SLOW IVP PRN (19:47)
[2024-01-10] MEDS ORDERED: hydrALAZINE 20 MG/ML VIAL SLOW IVP PRN (19:47)
[2024-01-10] MEDS ORDERED: Ipratropium/Albuterol 3 ML NEB NEB PRN (19:47)
[2024-01-10 21:08] VITALS: BMI 27.3
[2024-01-10] MEDS: Ketorolac Tromethamine 30 MG (1 mL) VIAL IVP SCH (21:44)
[2024-01-10] MEDS: Acetaminophen 500 MG TAB PO SCH (21:45)
[2024-01-10] MEDS: fentaNYL 25 mcg Patch TD SCH (21:45)
[2024-01-10] MEDS: Famotidine/PF 20 mg/2ml Vial SLOW IVP SCH (21:45)
[2024-01-10] MEDS: Sodium Chloride 0.9% 1,000 ML IV SCH (21:46)
[2024-01-11] MEDS: Ketorolac Tromethamine 30 MG (1 mL) VIAL IVP SCH (02:53)
[2024-01-11 04:09] LABS: #Eosinphils 0.1 thou/uL (0.0-0.7); #Monocytes 0.9 thou/uL (0.11-0.59); #Neutrophils 5.6 thou/uL (1.40-6.50); %Basophils 0.2 % (0.0-1.0); %Eosinophils 1.2 % (0.0-10.0); %Lymphocytes 19.8 % (21.0-51.0); %Monocytes 10.5 % (0.0-10.0); %Neutrophils 68.2 % (42.0-75.0); Hematocrit 33.1 % (42.0-52.0); Mean Corpuscular HGB CONC 33.2 g/dL (32.0-36.0); Mean Corpuscular Hemoglobin 31.7 pg (27.0-31.0); Mean Corpuscular Volume 95.4 fl (78.0-98.0); Mean Platelet Volume 10.9 fL (7.4-10.4); Platelet Count 153 10x3/uL (130-400); RBC Distribution Width 12.8 % (11.5-14.5); Red Blood Cell (RBC) Count 3.47 mill/uL (4.70-6.10); White Blood Cell (WBC) Count 8.2 10x3/uL (4.8-10.8)
[2024-01-11 04:31] LABS: INR-International Normal Ratio 1.2; Prothrombin Time 14.9 sec (12.0-14.7)
[2024-01-11 04:32] LABS: PTT 35.5 sec (22.9-36.1)
[2024-01-11 04:38] LABS: Anion Gap 12 mmol/L (10-20); BUN (Urea Nitrogen) 20 mg/dL (8.4-25.7); Calc. Creatinine Clearance 93 mL/min (70-130); Calcium 8.6 mg/dL (7.8-10.44); Carbon Dioxide 26 mmol/L (23-31); Chloride 102 mmol/L (98-107); Estimated GFR 89; Glucose 108 mg/dL (83-110); Magnesium 1.9 mg/dL (1.6-2.6); Potassium 3.7 mmol/L (3.5-5.1); Sodium 136 mmol/L (136-145)
[2024-01-11] MEDS ORDERED: PROPOFOL 20 ML ONE (07:28)
[2024-01-11] MEDS ORDERED: CEFAZOLIN 2 GM VIAL ONE (08:00)
[2024-01-11] MEDS ORDERED: Sodium Chloride 0.9% 100 ML ONE (08:00)
[2024-01-11] MEDS ORDERED: Ketorolac Tromethamine 30 MG/ML VIAL IVP PRN (08:08)
[2024-01-11] MEDS ORDERED: HYDROmorphone 2 MG/ML VIAL SLOW IVP PRN (08:08)
[2024-01-11] MEDS ORDERED: Ondansetron HCl/PF 4 MG/2 ML Vial IVP PRN (08:08)
[2024-01-11] MEDS ORDERED: fentaNYL PF 100 MCG/2 ML SYRINGE ONE (08:19)
[2024-01-11] MEDS ORDERED: Lidocaine 2% 6 ML (Jelly) SYR ONE (08:22)
[2024-01-11] MEDS ORDERED: RIZATRIPTAN BENZOATE 10 MG PO PRN (08:24)
[2024-01-11] MEDS ORDERED: Non-Formulary Item 1 EACH (Zolpidem Tartrate [Ambien] 10 MG Tablet) PO PRN (08:24)
[2024-01-11] MEDS ORDERED: SUMAtriptan Succinate 50 MG TAB PO PRN (08:31)
[2024-01-11] MEDS ORDERED: Zolpidem Tartrate 5 MG TAB PO PRN (08:32)
[2024-01-11] MEDS ORDERED: Dexamethasone 20 MG/5 ML VIAL ONE (08:34)
[2024-01-11] MEDS ORDERED: Ondansetron PF 4 MG/2 ML Vial ONE (08:34)
[2024-01-11] MEDS ORDERED: HYDROmorphone 2 MG/ML VIAL ONE (08:51)
[2024-01-11] MEDS ORDERED: Linaclotide [Linzess] 290 MCG Capsule PO SCH (09:00)
[2024-01-11] MEDS ORDERED: NALOXEGOL OXALATE 25 MG PO SCH (09:00)
[2024-01-11] MEDS: Naloxegol 12.5 MG TAB PO SCH (09:00)
[2024-01-11] MEDS ORDERED: Non-Formulary Item 1 EACH (Linaclotide [Linzess] 290 MCG Capsule) PO SCH (09:00)
[2024-01-11] MEDS ORDERED: Non-Formulary Item 1 EACH (Rosuvastatin Calcium [Crestor] 40 MG Tablet) PO SCH (09:00)
[2024-01-11] MEDS ORDERED: fentaNYL 50 mcg/mL 1 mL Vial ONE ×2 (09:48→09:54)
[2024-01-11] MEDS ORDERED: HYDROmorphone 0.5 MG/0.5 ML SYRINGE ONE ×2 (10:02→10:11)
[2024-01-11] MEDS: CEFAZOLIN 2 GM in Sodium Chloride 0.9% 100 ML IVPB SCH ×2 (14:14→14:33)
[2024-01-11] MEDS: Acetaminophen 500 MG TAB PO SCH (14:19)
[2024-01-11] MEDS: Hydrochlorothiazide 25 MG TAB PO SCH (14:20)
[2024-01-11] MEDS: fentaNYL 25 mcg Patch TD SCH (14:20)
[2024-01-11] MEDS: Rosuvastatin 20 MG TAB PO SCH (20:54)
[2024-01-11] MEDS: Tamsulosin HCl 0.4 MG CAP PO SCH (20:54)
[2024-01-12 07:37] LABS: Hematocrit 22.9 % (42.0-52.0); Hemoglobin 7.6 g/dL (14.0-18.0)
[2024-01-12] MEDS ORDERED: Non-Formulary Item 1 EACH (Celecoxib [Celebrex] 200 MG Capsule) PO PRN (10:00)
[2024-01-12] MEDS: CeleCOXIB 100 MG CAP PO PRN (10:02)
[2024-01-12] MEDS: Ondansetron ODT 4 MG TAB PO PRN (13:41)
[2024-01-12] MEDS: Ferrous Sulfate 325 MG TAB PO SCH (17:20)
[2024-01-12] MEDS: fentaNYL 50 mcg/mL 1 mL Vial SLOW IVP PRN (17:20)
[2024-01-12] MEDS: DULoxetine 60 MG CAP PO SCH (21:09)
[2024-01-13 04:47] LABS: #Eosinphils 0.1 thou/uL (0.0-0.7); %Basophils 0.2 % (0.0-1.0); %Eosinophils 1.7 % (0.0-10.0); %Lymphocytes 14.7 % (21.0-51.0); %Monocytes 11.4 % (0.0-10.0); %Neutrophils 71.6 % (42.0-75.0); Hematocrit 24.9 % (42.0-52.0); Hemoglobin 8.3 g/dL (14.0-18.0); Mean Corpuscular HGB CONC 33.3 g/dL (32.0-36.0); Mean Corpuscular Hemoglobin 31.4 pg (27.0-31.0); Mean Corpuscular Volume 94.3 fl (78.0-98.0); Mean Platelet Volume 11.8 fL (7.4-10.4); Platelet Count 113 10x3/uL (130-400); RBC Distribution Width 13.4 % (11.5-14.5); Red Blood Cell (RBC) Count 2.64 mill/uL (4.70-6.10); White Blood Cell (WBC) Count 8.4 10x3/uL (4.8-10.8)
[2024-01-13 05:34] LABS: Anion Gap 9 mmol/L (10-20); BUN (Urea Nitrogen) 22 mg/dL (8.4-25.7); Calc. Creatinine Clearance 108 mL/min (70-130); Calcium 7.6 mg/dL (7.8-10.44); Carbon Dioxide 26 mmol/L (23-31); Chloride 108 mmol/L (98-107); Estimated GFR 93; Glucose 108 mg/dL (83-110); Potassium 3.5 mmol/L (3.5-5.1); Sodium 139 mmol/L (136-145)
[2024-01-13 05:39] LABS: Critical Call Chemistry CPT.SL @0538; Phosphorus 1.3 mg/dL (2.3-4.7)
[2024-01-13] MEDS: Ascorbic Acid 500 mg Chewable Tablet PO SCH (08:06)
[2024-01-13] MEDS: Sodium Phosphate 45 MMOL in Sodium Chloride 0.9% 250 ML 250 ML IVPB SCH (08:09)
[2024-01-13] MEDS: Simethicone Chewable 80 MG TAB PO PRN (16:57)
[2024-01-13] MEDS: Polyethylene Glycol 3350 17 GM Packet PO PRN (16:57)
[2024-01-13] MEDS: Ondansetron PF 4 MG/2 ML Vial IVP PRN (20:01)
[2024-01-13] MEDS: Aspirin 81 mg Enteric Coated Tablet PO SCH (20:02)
[2024-01-13] MEDS: DULoxetine 60 MG CAP PO SCH (20:03)
[2024-01-13] MEDS ORDERED: Aspirin 81 mg Enteric Coated Tablet PO SCH (21:00)
[2024-01-14 04:58] LABS: #Eosinphils 0.2 thou/uL (0.0-0.7); #Neutrophils 8.3 thou/uL (1.40-6.50); %Basophils 0.2 % (0.0-1.0); %Eosinophils 1.5 % (0.0-10.0); %Lymphocytes 12.1 % (21.0-51.0); %Monocytes 9.2 % (0.0-10.0); %Neutrophils 76.7 % (42.0-75.0); Hematocrit 25.6 % (42.0-52.0); Hemoglobin 8.8 g/dL (14.0-18.0); Mean Corpuscular HGB CONC 34.4 g/dL (32.0-36.0); Mean Corpuscular Hemoglobin 32.2 pg (27.0-31.0); Mean Corpuscular Volume 93.8 fl (78.0-98.0); Mean Platelet Volume 11.2 fL (7.4-10.4); Platelet Count 135 10x3/uL (130-400); RBC Distribution Width 13.2 % (11.5-14.5); Red Blood Cell (RBC) Count 2.73 mill/uL (4.70-6.10); White Blood Cell (WBC) Count 10.8 10x3/uL (4.8-10.8)
[2024-01-14 05:21] LABS: Anion Gap 10 mmol/L (10-20); BUN (Urea Nitrogen) 16 mg/dL (8.4-25.7); Calc. Creatinine Clearance 105 mL/min (70-130); Calcium 8.4 mg/dL (7.8-10.44); Carbon Dioxide 27 mmol/L (23-31); Chloride 105 mmol/L (98-107); Estimated GFR 93; Glucose 111 mg/dL (83-110); Magnesium 2.2 mg/dL (1.6-2.6); Potassium 3.5 mmol/L (3.5-5.1); Sodium 138 mmol/L (136-145)
[2024-01-14] MEDS: Potassium Phosphate 30 MMOL in Sodium Chloride 0.9% 250 ML 250 ML IVPB SCH (10:03)
[2024-01-14] MEDS: Polyethylene Glycol 3350 17 GM Packet PO SCH (15:42)
[2024-01-14] MEDS: Famotidine 20 MG TAB PO SCH (21:11)
[2024-01-15 20:02] VITALS: BP 136/74; TEMP 98.2
== END 2024-01-15 22:40 | DRG 481 ==
LOC: ERS 18:06 → SURG B 19:50
PROVIDERS: ADMIT Specialist; ATTEND Specialist
PROC: 0QS704Z Reposition Left Upper Femur with Internal Fixation Device, Open Approach (ICD-10-PCS; principal; 2024-01-11)
DX: S72.142A Displaced intertrochanteric fracture of left femur, initial encounter for closed fracture (principal); D62 Acute posthemorrhagic anemia; W01.0XXA Fall on same level from slipping, tripping and stumbling without subsequent striking against object, initial encounter; K21.9 Gastro-esophageal reflux disease without esophagitis; I10 Essential (primary) hypertension; M81.0 Age-related osteoporosis without current pathological fracture; M79.7 Fibromyalgia; G89.29 Other chronic pain; Z90.49 Acquired absence of other specified parts of digestive tract; Z88.1 Allergy status to other antibiotic agents
CPT/HCPCS: 36415; 36416; 36430; 70450; 71045; 72125; 72131; 80048; 80053; 81001; 83735; 84100; 85014; 85018; 85025; 85610; 85730; 86850; 86900; 86901; 93005; 96374; 96375; C1713; G0390; J1100; J1170; J1885; J2270; J2405; J2704; J3010; J3490; J7050; P9016; Q0162; S0028